=== PATIENT | male | born 1960 | race Two or more races ===

== ENCOUNTER → 2018-02-03 | Outpatient (CLI) | END | disposition home or self-care (01) ==

== ENCOUNTER → 2018-03-07 | Outpatient (CLI) | END | disposition home or self-care (01) ==

== ENCOUNTER → 2018-05-20 | Outpatient (CLI) | END | disposition home or self-care (01) ==

== ENCOUNTER → 2018-06-09 | Outpatient (CLI) | END | disposition home or self-care (01) ==